=== PATIENT | female | born 1960 | race Caucasian/White ===

== ENCOUNTER → 2023-12-23 13:05 | Outpatient (REF) | payer MEDICARE, SELFPAY | LOC: PAVMRI 13:05 | PROVIDERS: ATTENDING PHYSICIAN Orthopaedic Surgery; FAMILY PHYSICIAN Physician Assistant Medical | DX: M25.511 Pain in right shoulder (principal) | CPT/HCPCS: 73221 ==

== ENCOUNTER → 2024-02-04 10:27 | Outpatient (REF) | payer MEDICARE, SELFPAY | LOC: WDC 10:27 | PROVIDERS: ATTENDING PHYSICIAN Physician Assistant Medical | DX: Z12.31 Encounter for screening mammogram for malignant neoplasm of breast (principal) | CPT/HCPCS: 77063; 77067 ==

== ENCOUNTER → 2024-05-28 14:44 | Outpatient (REF) | payer MEDICARE, SELFPAY | LOC: WDC 14:44 | PROVIDERS: ATTENDING PHYSICIAN Physician Assistant Medical | DX: R92.8 Other abnormal and inconclusive findings on diagnostic imaging of breast (principal) | CPT/HCPCS: 76642 ==

== ENCOUNTER 2024-07-16 10:02 | Outpatient (RCR) | payer MEDICARE, SELFPAY | END 2024-07-16 23:59 | disposition home or self-care (01) | LOC: RPT 10:02 | PROVIDERS: ATTENDING PHYSICIAN Nurse Practitioner; FAMILY PHYSICIAN Physician Assistant Medical | DX: N39.46 Mixed incontinence (principal); R35.0 Frequency of micturition; N81.12 Cystocele, lateral; Z73.6 Limitation of activities due to disability | CPT/HCPCS: 97110; 97140; 97161; 97530 ==

== ENCOUNTER → 2024-08-04 08:03 | Outpatient (REF) | payer MEDICARE, SELFPAY | LOC: RCS 08:03 | PROVIDERS: ATTENDING PHYSICIAN Internal Medicine Cardiovascular Disease; FAMILY PHYSICIAN Physician Assistant Medical | DX: I47.10 Supraventricular tachycardia, unspecified (principal); I36.1 Nonrheumatic tricuspid (valve) insufficiency; E78.00 Pure hypercholesterolemia, unspecified; R53.83 Other fatigue | CPT/HCPCS: 93306 ==

== ENCOUNTER 2024-08-12 12:07 | Outpatient (RCR) | payer MEDICARE, SELFPAY | END 2024-08-12 23:59 | disposition home or self-care (01) | LOC: RPT 12:07 | PROVIDERS: ATTENDING PHYSICIAN Nurse Practitioner; FAMILY PHYSICIAN Physician Assistant Medical | DX: N81.12 Cystocele, lateral (principal); N39.46 Mixed incontinence; R35.0 Frequency of micturition; Z73.6 Limitation of activities due to disability | CPT/HCPCS: 97110; 97112; 97140 ==

== ENCOUNTER 2024-09-07 08:09 | Outpatient (RCR) | payer MEDICARE, SELFPAY | END 2024-09-07 23:59 | disposition home or self-care (01) | LOC: RPT 08:09 | PROVIDERS: ATTENDING PHYSICIAN Nurse Practitioner; FAMILY PHYSICIAN Physician Assistant Medical | DX: R35.0 Frequency of micturition (principal); N39.46 Mixed incontinence; N81.12 Cystocele, lateral; Z73.6 Limitation of activities due to disability | CPT/HCPCS: 97110; 97112; 97530 ==

== ENCOUNTER 2024-10-07 11:52 | Outpatient (RCR) | payer MEDICARE, SELFPAY | END 2024-10-07 23:59 | disposition home or self-care (01) | LOC: RPT 11:52 | PROVIDERS: ATTENDING PHYSICIAN Nurse Practitioner; FAMILY PHYSICIAN Physician Assistant Medical | DX: R35.0 Frequency of micturition (principal); N39.46 Mixed incontinence; N81.12 Cystocele, lateral; Z73.6 Limitation of activities due to disability | CPT/HCPCS: 97110; 97112 ==

== ENCOUNTER → 2025-06-10 07:33 | Outpatient (REF) | payer MEDICARE, SELFPAY | LOC: HWRAD 07:33 | PROVIDERS: ATTENDING PHYSICIAN Nurse Practitioner; FAMILY PHYSICIAN Physician Assistant Medical | DX: R35.0 Frequency of micturition (principal) | CPT/HCPCS: 76770; 76856 ==

== ENCOUNTER → 2025-06-27 13:51 | Outpatient (REF) | payer MEDICARE, SELFPAY | LOC: HWRCS 13:51 | PROVIDERS: ATTENDING PHYSICIAN Internal Medicine Cardiovascular Disease; FAMILY PHYSICIAN Physician Assistant Medical | DX: R06.02 Shortness of breath (principal); R06.09 Other forms of dyspnea; M25.561 Pain in right knee; R26.2 Difficulty in walking, not elsewhere classified | CPT/HCPCS: 93306 ==

== ENCOUNTER → 2025-07-05 11:11 | Outpatient (REF) | payer MEDICARE, SELFPAY | LOC: HWRCS 11:11 | PROVIDERS: ATTENDING PHYSICIAN Internal Medicine Cardiovascular Disease; FAMILY PHYSICIAN Physician Assistant Medical | DX: R06.02 Shortness of breath (principal); R06.09 Other forms of dyspnea; M25.561 Pain in right knee; R26.2 Difficulty in walking, not elsewhere classified | CPT/HCPCS: 78452; 93017; A9500; J2785 ==